=== PATIENT | female | born 1965 | race Caucasian/White ===

== ENCOUNTER 2016-12-25 12:56 | Inpatient (IN) | payer OTHER ==
[2016-12-25 14:05] LABS: HEMOGLOBIN 13.7 gm/dl (12.3-15.3); RED BLOOD COUNT 4.59 M/UL (4.00-5.10); WHITE BLOOD COUNT 9.9 K/UL (4.5-11.0)
[2016-12-25] MEDS ORDERED: NEURONTIN 100100 MG PO (22:44)
[2016-12-25] MEDS ORDERED: TYLENOL 325MG325 MG PO (22:44)
[2016-12-25] MEDS ORDERED: NOVOLIN 70100 UNIT/1 SQ ×2 (22:44→22:45)
[2016-12-25] MEDS ORDERED: VENTOLIN HFA 66.7 GM INH (22:45)
[2016-12-25] MEDS ORDERED: COMBIVENT0.074 GM/I INH (22:46)
[2016-12-25] MEDS ORDERED: ANASTROZOLE1 MG PO (22:46)
[2016-12-25] MEDS ORDERED: ADULT LOW DOSE81 MG PO (22:46)
[2016-12-25] MEDS ORDERED: LOSARTAN POTASS50 MG PO (22:46)
[2016-12-25] MEDS ORDERED: ZOLOFT25 MG PO (22:47)
[2016-12-25] MEDS ORDERED: VITAMIN D31000 UNIT PO (22:47)
[2016-12-25] MEDS ORDERED: LEVOTHYROXINE200 MC1 PO (22:47)
[2016-12-25] MEDS ORDERED: ACID CONTROL150 MG PO (22:48)
[2016-12-25] MEDS ORDERED: HYDROXYZINE HCL25 MG PO (22:48)
[2016-12-25] MEDS ORDERED: ATORVASTATIN CA10 MG PO (22:49)
[2016-12-25] MEDS ORDERED: SPIRONOLACTONE25 MG PO (22:49)
[2016-12-25] MEDS ORDERED: ELAVIL 25 MG TA25 MG PO (22:50)
[2016-12-25] MEDS ORDERED: ALLEGRA ALLERG180 MG PO (22:50)
[2016-12-25] MEDS ORDERED: METOPROLOL TART25 MG PO (23:00)
[2016-12-28] MEDS ORDERED: NYSTATIN1 EAC2 TOP (14:23)
[2016-12-28] MEDS ORDERED: VITAMIN D 11000 UNIT PO (14:24)
[2016-12-28] MEDS ORDERED: IPRAT-ALBUT 0.5-3 ML INH (14:26)
[2016-12-28] MEDS ORDERED: SPIRIVA HANDIH18 MCG INH (14:28)
[2016-12-28] MEDS ORDERED: OXYGEN INH (14:28)
[2016-12-28] MEDS ORDERED: DULERA 100 MCG8.8 GM INH (14:29)
== END 2016-12-28 16:00 | disposition home or self-care (01) | DRG 682 ==
LOC: ER1 12:56 → MED SURG 4 18:11 → ZEROF 18:11 → MED SURG 4 21:43
PROVIDERS: Emergency Medicine; Internal Medicine Infectious Disease; Physician Assistant Medical; ADMIT Internal Medicine
DX: N17.9 Acute kidney failure, unspecified (principal); J96.22 Acute and chronic respiratory failure with hypercapnia; J96.21 Acute and chronic respiratory failure with hypoxia; E66.2 Morbid (severe) obesity with alveolar hypoventilation; Z68.43 Body mass index [BMI] 50.0-59.9, adult; I13.0 Hypertensive heart and chronic kidney disease with heart failure and stage 1 through stage 4 chronic kidney disease, or unspecified chronic kidney disease; E87.2 Acidosis; I38 Endocarditis, valve unspecified; J44.9 Chronic obstructive pulmonary disease, unspecified; F17.210 Nicotine dependence, cigarettes, uncomplicated; N18.3 Chronic kidney disease, stage 3 (moderate); Z85.3 Personal history of malignant neoplasm of breast; Z98.890 Other specified postprocedural states; Z92.3 Personal history of irradiation; E87.5 Hyperkalemia; E11.65 Type 2 diabetes mellitus with hyperglycemia; E03.9 Hypothyroidism, unspecified; Z59.0 Homelessness; I50.9 Heart failure, unspecified; B37.9 Candidiasis, unspecified; K08.9 Disorder of teeth and supporting structures, unspecified; Z90.49 Acquired absence of other specified parts of digestive tract; Z88.0 Allergy status to penicillin; Z79.899 Other long term (current) drug therapy; Z79.4 Long term (current) use of insulin; Z79.82 Long term (current) use of aspirin; Z82.49 Family history of ischemic heart disease and other diseases of the circulatory system; Z83.3 Family history of diabetes mellitus; Z51.89 Encounter for other specified aftercare; I27.2 Other secondary pulmonary hypertension
CPT/HCPCS: ECHO; 36415; 36600; 51702; 71010; 80048; 80053; 81001; 82803; 82962; 83036; 83735; 83880; 84439; 84443; 84484; 85025; 87040; 93005; 93306; 94640; 94664; 96361; 96374; 99285; J1650; J2930; J7030; J7040